=== PATIENT | male | born 1995 | race Two or more races ===

== ENCOUNTER 2025-05-10 16:31 | Emergency (ER) | payer SELFPAY ==
[2025-05-10] MEDS: Acetaminophen/oxyCODONE 325-5 MG Tab PO ONE (17:21)
== END 2025-05-10 18:33 | disposition home or self-care (01) ==
LOC: MW.ED 16:31
DX: M54.50 Low back pain, unspecified (principal); Z75.3 Unavailability and inaccessibility of health-care facilities
CPT/HCPCS: 72131; 99283; A9270